=== PATIENT | female | born 1955 | race Caucasian/White ===

== ENCOUNTER → 2021-03-14 | Outpatient (CLI) | payer MEDICARE, OTHER | LOC: MAMO 11:00 | DX: Z12.31 Encounter for screening mammogram for malignant neoplasm of breast (principal); Z78.0 Asymptomatic menopausal state; N63.20 Unspecified lump in the left breast, unspecified quadrant; M85.89 Other specified disorders of bone density and structure, multiple sites | CPT/HCPCS: 77063; 77067; 77080 ==

== ENCOUNTER → 2021-03-18 | Outpatient (CLI) | payer MEDICARE, OTHER ==
[2021-03-18 16:12] LABS: HEMOGLOBIN 15.8 gm/dl (12.3-15.3); RED BLOOD COUNT 5.06 M/UL (4.00-5.10); WHITE BLOOD COUNT 6.2 K/UL (4.5-11.0)
[2021-03-18 16:37] LABS: BUN/CREATININE RATIO 19 (0-10)
== END ==
LOC: LAB 14:57
PROVIDERS: Internal Medicine
DX: D58.2 Other hemoglobinopathies (principal); E83.51 Hypocalcemia; I10 Essential (primary) hypertension; R74.8 Abnormal levels of other serum enzymes
CPT/HCPCS: 36415; 80048; 80076; 81270; 82550; 82668; 83615; 83970; 84075; 84080; 84100; 85025

== ENCOUNTER → 2021-04-18 | Outpatient (CLI) | payer MEDICARE, OTHER | LOC: MAMO 04-12 13:00 → US 04-12 13:30 → MAMO 14:04 | DX: R92.8 Other abnormal and inconclusive findings on diagnostic imaging of breast (principal); N60.02 Solitary cyst of left breast | CPT/HCPCS: 76641-LT; 77065; G0279 ==

== ENCOUNTER → 2021-06-21 | Outpatient (CLI) | payer MEDICARE, OTHER ==
[2021-06-21 11:31] LABS: HEMOGLOBIN 14.7 gm/dl (12.3-15.3); RED BLOOD COUNT 4.68 M/UL (4.00-5.10); WHITE BLOOD COUNT 4.9 K/UL (4.5-11.0)
[2021-06-21 12:01] LABS: BUN/CREATININE RATIO 25 (0-10)
[2021-06-24 15:11] LABS: ALKALINE PHOSPHATASE, S 98 IU/L (48-121); BONE FRACTION: 41 % (14-68); INTESTINAL FRAC.: 6 % (0-18); LIVER FRACTION: 54 % (18-85)
== END ==
LOC: LAB 10:21
PROVIDERS: Internal Medicine
DX: D58.2 Other hemoglobinopathies (principal); E83.51 Hypocalcemia; I10 Essential (primary) hypertension; R74.8 Abnormal levels of other serum enzymes
CPT/HCPCS: 36415; 80048; 80076; 81219; 81402; 81403; 82550; 82668; 83615; 83970; 84075; 84080; 84100; 85025

== ENCOUNTER → 2021-10-16 | Outpatient (CLI) | payer MEDICARE, OTHER ==
[2021-10-16 10:43] LABS: HEMOGLOBIN 14.5 gm/dl (12.3-15.3); RED BLOOD COUNT 4.73 M/UL (4.00-5.10)
[2021-10-16 11:36] LABS: BUN/CREATININE RATIO 19 (0-10)
== END ==
LOC: LAB 09:32
PROVIDERS: Internal Medicine
DX: D58.2 Other hemoglobinopathies (principal); E78.1 Pure hyperglyceridemia; I10 Essential (primary) hypertension; M85.80 Other specified disorders of bone density and structure, unspecified site
CPT/HCPCS: 36415; 80048; 80061; 80076; 85025

== ENCOUNTER → 2021-10-21 | Outpatient (CLI) | payer MEDICARE, OTHER | LOC: MAMO 10:00 → US 10:00 | DX: R92.8 Other abnormal and inconclusive findings on diagnostic imaging of breast (principal) | CPT/HCPCS: 76641-LT ==

== ENCOUNTER → 2022-05-05 | Outpatient (CLI) | payer MEDICARE, OTHER ==
[2022-05-05 10:27] LABS: RED BLOOD COUNT 5.19 M/UL (4.00-5.10); WHITE BLOOD COUNT 7.6 K/UL (4.5-11.0)
[2022-05-05 17:05] LABS: BUN/CREATININE RATIO 21 (0-10)
[2022-05-07 11:14] LABS: CHOLESTEROL, TOTAL 176 mg/dL (100-199); HDL CHOLESTEROL 47 mg/dL (>39); LDL CHOLESTEROL CALC 115 mg/dL (0-99); LDL/HDL RATIO 2.4 ratio (0.0-3.2); T. CHOL/HDL RATIO 3.7 ratio (0.0-4.4); TRIGLYCERIDES 77 mg/dL (0-149)
== END ==
LOC: LAB 09:35
PROVIDERS: Internal Medicine
DX: D58.2 Other hemoglobinopathies (principal); E78.1 Pure hyperglyceridemia; I10 Essential (primary) hypertension; M85.80 Other specified disorders of bone density and structure, unspecified site; R74.8 Abnormal levels of other serum enzymes
CPT/HCPCS: 36415; 80053; 80061; 83930; 84443; 85025